=== PATIENT | male | born 1940 | race Caucasian/White ===

== ENCOUNTER 2024-02-09 15:01 | Inpatient (IN) | payer OTHER ==
[~2024-02-09] VITALS: Ht 172.7 cm; Wt 73.9 kg
[2024-02-09 17:45] LABS: CHLORIDE 100 mEq/L (98-107); POTASSIUM 4.7 mEq/L (3.5-5.1); SODIUM 130 mEq/L (136-145)
[2024-02-09 17:46] LABS: CALCIUM 8.8 mg/dL (8.7-10.4); CARBON DIOXIDE 24 mEq/L (21-32)
[2024-02-09 17:51] LABS: BASOPHILS % 0.3 % (0.0-2.0); EOSINOPHILS % 4.6 % (0.0-5.0); GLUCOSE 115 mg/dL (70-105); HEMATOCRIT. 35.9 % (42.0-52.0); HEMOGLOBIN. 11.6 g/dL (14.0-18.0); LYMPHOCYTES % 19.8 % (20.0-50.0); MEAN CORPUSCULAR HEMOGLOBIN 29.5 pg (28.0-32.0); MEAN CORPUSCULAR HGB CONC 32.2 g/dL (31.0-37.0); MEAN CORPUSCULAR VOLUME 91.4 fL (80.0-94.0); MEAN PLATELET VOLUME 8.2 fl (7.4-10.4); MONOCYTES % 13.5 % (2.0-8.0); NEUTROPHILS % 61.8 % (40.0-76.0); PLATELET 284 x1000/uL (130-400); RED BLOOD CELL COUNT 3.93 mill/uL (4.7-6.1); RED CELL DISTRIBUTION WIDTH 13.9 % (11.6-14.6); UREA NITROGEN BLOOD 23 mg/dL (9-23); WHITE BLOOD COUNT 7.1 x1000/uL (4.5-11.0)
[2024-02-09 17:52] LABS: TROPONIN I HIGH SENSITIVITY 9 ng/L (3.0-53)
[2024-02-09 17:53] LABS: ALANINE AMINOTRANSFERASE 66 IU/L (10-49); ALBUMIN 3.8 g/dL (3.2-4.8); ASPARTATE AMINOTRANSFERASE 51 IU/L (<34); BILIRUBIN DIRECT 0.5 mg/dL (<=3.0); BILIRUBIN TOTAL 1.1 mg/dL (0.1-1.0); PROTEIN TOTAL 6.4 g/dL (6.0-8.3)
[2024-02-09] MEDS ORDERED: ONDANSETRON HCL 4MG/2ML INJ IV PRN (19:45)
[2024-02-09] MEDS ORDERED: IPRATROPIUM/ALBUTEROL 0.5-3(2.5)MG/3ML NEB HHN PRN (19:45)
[2024-02-09 20:00] VITALS: BP 104/63; PULSE 60; RESP 22; TEMP 97.5
[2024-02-10] VITALS (7 sets, daily range): BP systolic 112–138; BP diastolic 50–78; PULSE 64–71; RESP 18–20; TEMP 96.6–98.3
[2024-02-10 00:41] LABS: TROPONIN I HIGH SENSITIVITY 11 ng/L (3.0-53)
[2024-02-10 09:27] LABS: CARBON DIOXIDE 22 mEq/L (21-32); CHLORIDE 99 mEq/L (98-107); POTASSIUM 4.2 mEq/L (3.5-5.1); SODIUM 130 mEq/L (136-145)
[2024-02-10 09:28] LABS: CALCIUM 9.4 mg/dL (8.7-10.4)
[2024-02-10 09:33] LABS: GLUCOSE 106 mg/dL (70-105); UREA NITROGEN BLOOD 20 mg/dL (9-23)
[2024-02-10 09:34] LABS: TROPONIN I HIGH SENSITIVITY 10 ng/L (3.0-53)
[2024-02-10 09:35] LABS: BASOPHILS % 0.5 % (0.0-2.0); EOSINOPHILS % 3.7 % (0.0-5.0); HEMATOCRIT. 39.2 % (42.0-52.0); MEAN CORPUSCULAR HEMOGLOBIN 30.2 pg (28.0-32.0); MEAN CORPUSCULAR VOLUME 91.3 fL (80.0-94.0); MEAN PLATELET VOLUME 8.1 fl (7.4-10.4); MONOCYTES % 11.4 % (2.0-8.0); NEUTROPHILS % 66.4 % (40.0-76.0); PLATELET 318 x1000/uL (130-400); WHITE BLOOD COUNT 6.7 x1000/uL (4.5-11.0)
[2024-02-11] VITALS: BP 148/64; PULSE 64; RESP 64; TEMP 98.1
[2024-02-11 04:00] VITALS: BP 145/69; PULSE 63; RESP 18; TEMP 97.8
[2024-02-11 08:00] VITALS: BP 115/67; PULSE 67; RESP 18; TEMP 97.6
[2024-02-11] MEDS ORDERED: ATOR40TA70 MT (11:23)
[2024-02-11] MEDS ORDERED: ASPI-867 MT (11:26)
[2024-02-11] MEDS ORDERED: CARV6.2548 PO (11:28)
[2024-02-11] MEDS ORDERED: ESOM40CA53 MT (11:29)
[2024-02-11] MEDS ORDERED: ISOS30TA91 PO (11:31)
[2024-02-11] MEDS ORDERED: LISI-186 MT (11:44)
[2024-02-11] MEDS ORDERED: ENOX40SY27 SQ (11:46)
[2024-02-11] MEDS ORDERED: NIAC1CAP PO (12:03)
[2024-02-11] MEDS ORDERED: NITR0.4T49 SL (12:04)
[2024-02-11] MEDS ORDERED: SPIR25TA6 MT (12:08)
[2024-02-11] MEDS ORDERED: OXYC5CAP19 PO (12:08)
[2024-02-11] MEDS ORDERED: EZET10TA81 PO (12:09)
[2024-02-11] MEDS: ISOSORBIDE MONONITRATE 30MG TABLET SR 24HR PO SCH (14:17)
[2024-02-11 16:00] VITALS: BP 130/59; PULSE 66; RESP 18; TEMP 97.7
[2024-02-11 17:01] LABS: ALBUMIN 3.7 g/dL (3.2-4.8)
[2024-02-11 17:02] LABS: PREALBUMIN 10.6 mg/dl (10.0-40.0)
[2024-02-11 20:00] VITALS: BP 128/72; PULSE 83; RESP 18; TEMP 97.8
[2024-02-11] MEDS: ENOXAPARIN 30MG/0.3ML SYR SUBCUT SCH (21:30)
[2024-02-11] MEDS: DIPHENHYDRAMINE 50MG/ML VIAL IV PRN (21:31)
[2024-02-11] MEDS: CARVEDILOL 6.25 MG TABLET PO SCH (21:34)
[2024-02-12] VITALS: BP 116/64; PULSE 78; RESP 17; TEMP 97.6
[2024-02-12 04:00] VITALS: BP 133/58; PULSE 68; RESP 18; TEMP 97.7
[2024-02-12] MEDS: PANTOPRAZOLE 40MG DR TABLET PO SCH (06:20)
[2024-02-12 08:00] VITALS: BP 136/73; PULSE 68; RESP 19; TEMP 97.2
[2024-02-12] MEDS: EZETIMIBE 10MG TABLET PO SCH (09:06)
[2024-02-12] MEDS: LISINOPRIL 5MG TABLET PO SCH (09:07)
[2024-02-12] MEDS: SPIRONOLACTONE 25MG TABLET PO SCH (09:07)
[2024-02-12 12:00] VITALS: BP 103/43; PULSE 60; RESP 19; TEMP 97.9
[2024-02-12 16:00] VITALS: BP 99/57; PULSE 64; RESP 17; TEMP 96.9
[2024-02-12 20:00] VITALS: BP 95/53; PULSE 70; RESP 18; TEMP 97.8
[2024-02-12] MEDS: ATORVASTATIN CALCIUM 40MG TABLET PO SCH (21:55)
[2024-02-13] VITALS: BP 117/52; PULSE 74; RESP 18; TEMP 97.9
[2024-02-13 04:00] VITALS: BP 133/52; PULSE 73; RESP 18; TEMP 97.8
[2024-02-13 09:00] VITALS: BP 105/57; PULSE 71; RESP 20; TEMP 96.8
[2024-02-13] MEDS: OXYCODONE HCL 5MG TABLET PO PRN (10:37)
[2024-02-13 12:00] VITALS: BP 124/59; PULSE 78; RESP 20; TEMP 97
[2024-02-13 16:00] VITALS: BP 106/61; PULSE 72; RESP 20; TEMP 96.7
[2024-02-13 20:00] VITALS: BP 122/64; PULSE 79; RESP 18; TEMP 98.6
[2024-02-14] VITALS: BP 101/66; PULSE 79; RESP 20; TEMP 98.4
[2024-02-14 04:00] VITALS: BP 100/44; PULSE 72; RESP 18; TEMP 98.2
[2024-02-14 08:08] VITALS: BP 114/50; PULSE 68; RESP 20; TEMP 97
[2024-02-14 12:00] VITALS: BP 105/59; PULSE 73; RESP 18; TEMP 97
[2024-02-14 16:00] VITALS: BP 90/49; PULSE 69; RESP 18; TEMP 97.5
[2024-02-14] MEDS: MULTIVITAMINS,THER W-MINERALS TABLET PO SCH (17:54)
[2024-02-14] MEDS: ASCORBIC ACID 500 MG TABLET PO SCH (17:54)
[2024-02-14 20:00] VITALS: BP 112/60; PULSE 87; RESP 18; TEMP 98
[2024-02-14] MEDS ORDERED: NALOXONE HCL 0.4MG/ML VIAL IV PRN (22:30)
[2024-02-15] VITALS (8 sets, daily range): BP systolic 79–141; BP diastolic 44–70; PULSE 18–86; RESP 16–20; TEMP 97–98.6; O2SAT 99
[2024-02-16] VITALS (7 sets, daily range): BP systolic 80–114; BP diastolic 37–58; PULSE 61–72; RESP 17–20; TEMP 96–98.1
[2024-02-17 00:09] VITALS: BP 127/63; PULSE 66; RESP 20; TEMP 98.1
[2024-02-17 03:51] VITALS: BP 94/55; PULSE 62; RESP 20; TEMP 97.9
[2024-02-17 08:00] VITALS: BP 93/53; PULSE 64; RESP 18; TEMP 96.1
[2024-02-17 12:00] VITALS: BP 84/46; PULSE 68; RESP 18; TEMP 97.7
[2024-02-17 16:00] VITALS: BP 93/56; PULSE 56; RESP 17; TEMP 98.1
[2024-02-17 20:00] VITALS: BP 98/60; PULSE 75; RESP 18; TEMP 97.9
[2024-02-18] VITALS: BP 112/75; PULSE 78; RESP 18; TEMP 97.5
[2024-02-18 04:00] VITALS: BP 104/80; PULSE 80; RESP 18; TEMP 97.9
[2024-02-18 08:00] VITALS: BP 125/55; PULSE 65; RESP 18; TEMP 98
[2024-02-18 12:00] VITALS: BP 100/70; PULSE 66; RESP 20; TEMP 98
[2024-02-18 16:00] VITALS: BP 110/70; PULSE 78; RESP 20; TEMP 97
[2024-02-18 20:00] VITALS: BP 99/51; PULSE 73; RESP 20; TEMP 97.8
[2024-02-19] VITALS: BP 102/68; PULSE 82; RESP 18; TEMP 98.9
[2024-02-19 04:00] VITALS: BP 103/58; PULSE 78; RESP 20; TEMP 97.2
[2024-02-19 08:00] VITALS: BP 122/50; PULSE 64; RESP 18; TEMP 96.5
[2024-02-19 12:00] VITALS: BP 110/70; PULSE 63; RESP 18; TEMP 97
[2024-02-19 16:00] VITALS: BP 100/57; PULSE 62; RESP 18; TEMP 96
[2024-02-19 20:00] VITALS: BP 92/45; PULSE 65; RESP 17; TEMP 97.6
[2024-02-20] VITALS: BP 112/75; PULSE 68; RESP 18; TEMP 97.9
[2024-02-20 04:00] VITALS: BP 128/80; PULSE 67; RESP 17; TEMP 97.5
[2024-02-20 08:00] VITALS: BP 110/55; PULSE 73; RESP 18; TEMP 96.3
[2024-02-20 12:00] VITALS: BP 100/50; PULSE 72; RESP 18; TEMP 97
[2024-02-20 16:00] VITALS: BP 110/70; PULSE 62; RESP 20; TEMP 97
[2024-02-20 20:00] VITALS: BP 100/55; PULSE 66; RESP 20; TEMP 97.2
[2024-02-21] VITALS (9 sets, daily range): BP systolic 90–122; BP diastolic 47–70; PULSE 62–111; RESP 16–19; TEMP 97.4–98.4; O2SAT 98–99
[2024-02-21] MEDS: SODIUM CHLORIDE 0.9% 250 ML IV ONE (13:00)
[2024-02-21] MEDS: CARVEDILOL 3.125 MG TABLET PO SCH (21:00)
[2024-02-22] VITALS: BP 87/38; PULSE 64; RESP 20; TEMP 97.9
[2024-02-22 04:00] VITALS: BP_SYST 109; BP_DIAS 51; BP_DIAS 57; PULSE 66; RESP 18; TEMP 97.9
[2024-02-22 07:45] VITALS: BP 110/52; PULSE 68; RESP 18; TEMP 98.3
[2024-02-22 12:30] VITALS: BP 110/55; PULSE 70; RESP 18; TEMP 97.9
[2024-02-22] MEDS: MIDODRINE HCL 5MG TABLET PO SCH (13:18)
[2024-02-22 16:00] VITALS: BP 102/50; PULSE 68; RESP 18; TEMP 98.1
== END 2024-02-22 18:58 | DRG 311 ==
LOC: ER 15:01 → EDBEDREQ 15:13 → EDBEDREQTM 17:53 → EDBEDREQ 17:53 → 5WST 18:18 → 8WST 02-10 09:16
PROVIDERS: ADMIT Internal Medicine; ATTEND Internal Medicine
DX: I24.9 Acute ischemic heart disease, unspecified (principal); L89.153 Pressure ulcer of sacral region, stage 3; U07.1 COVID-19; I51.7 Cardiomegaly; D64.9 Anemia, unspecified; I25.10 Atherosclerotic heart disease of native coronary artery without angina pectoris; M16.11 Unilateral primary osteoarthritis, right hip; Z96.649 Presence of unspecified artificial hip joint; Z95.0 Presence of cardiac pacemaker; Z88.0 Allergy status to penicillin; Z88.6 Allergy status to analgesic agent; Z95.1 Presence of aortocoronary bypass graft
CPT/HCPCS: 36415; 71045; 73502; 80048; 80076; 82040; 83880; 84134; 84484; 85025; 87426; 93005; 93306; 93970; 97110; 97162; 97166; 97530; 99285; C1893; J1200; J1650